=== PATIENT | female | born 1975 | race Caucasian/White ===

== ENCOUNTER → 2016-07-09 | Outpatient (REF) | payer BC | LOC: M SFHCADAM 15:30 | PROVIDERS: ATTEND Physician Assistant Medical | DX: E03.9 Hypothyroidism, unspecified (principal); G40.909 Epilepsy, unspecified, not intractable, without status epilepticus; E55.9 Vitamin D deficiency, unspecified; R53.83 Other fatigue; Z87.39 Personal history of other diseases of the musculoskeletal system and connective tissue ==

== ENCOUNTER → 2017-01-06 | Outpatient (CLI) | payer BC ==
--- NOTE | 2017-01-06 15:17 | REPMRS ---
Patient History The patient states she has not had a clinical breast exam in over a year. Family history of breast cancer in 2 maternal aunts at age 50 or over. Digital Woman Screen Mammo: January 06, 2017 - Exam #: [id number] Bilateral CC and MLO view(s) were taken. Technologist: Beverly Solorio, Technologist Prior study comparison: November 11, 2015, digital woman screen mammo performed at [facility] to [facility]. September 10, 2014, digital woman screen mammo performed at [facility] to [facility]. FINDINGS: There are scattered fibroglandular densities. There has been no change in the appearance of the mammogram from the prior studies. There is a mild amount of scattered fibroglandular density which is fairly symmetric. There is no interval development of dominant mass, architectural distortion, or clustered microcalcification suggestive of malignancy. ASSESSMENT: BI-RADS/ACR category 1 mammogram. Negative. Recommendation Routine screening mammogram in 1 year (for women over age 40). This mammogram was interpreted with the aid of an FDA-approved computer-aided dectection system. Electronically Signed By: Gage Payton MD 01/06/17 [id number]
== END ==
LOC: M WHC 14:25
PROVIDERS: ATTEND Physician Assistant Medical
DX: Z12.31 Encounter for screening mammogram for malignant neoplasm of breast (principal)

== ENCOUNTER → 2017-02-03 | Outpatient (REF) | payer BC ==
[2017-02-03 19:43] LABS: BASO # 0.1 10^3/uL (0.0-0.2); BASO % 0.8 % (0.0-1.0); EOS # 0.1 10^3/uL (0.0-0.50); EOS % 1.7 % (0.0-3.0); IMMATURE GRANULOCYTE % 0.7 % (0-0); LYMPH # 2.5 10^3/uL (1.5-4.5); LYMPH % 41.2 % (24.0-44.0); MEAN CORPUSCULAR HEMOGLOBIN 28.8 pg (27.0-33.0); MEAN CORPUSCULAR HGB CONC 31.9 g/dl (32.0-36.5); MEAN CORPUSCULAR VOLUME 90.2 fl (80.0-96.0); MONO # 0.5 10^3/uL (0.0-0.8); MONO % 8.5 % (0.0-5.0); NEUTROPHILS # 2.8 10^3/uL (1.8-7.7); NEUTROPHILS % 47.1 % (36.0-66.0); PLATELET COUNT, AUTOMATED 222 10^3/uL (150-450); RED CELL DISTRIBUTION WIDTH 13.1 % (11.5-14.5)
[2017-02-03 20:12] LABS: ALBUMIN 3.7 GM/DL (3.2-5.2); ALBUMIN/GLOBULIN RATIO 1.09 (1.00-1.93); ALKALINE PHOSPHATASE 58 U/L (45-117); ALT/SGPT 22 U/L (12-78); ANION GAP 6 MEQ/L (8-16); AST/SGOT 18 U/L (7-37); BILIRUBIN,TOTAL 0.2 MG/DL (0.2-1.0); BLOOD UREA NITROGEN 18 MG/DL (7-18); CALCIUM LEVEL 8.4 MG/DL (8.5-10.1); CARBON DIOXIDE LEVEL 30 MEQ/L (21-32); CHLORIDE LEVEL 108 MEQ/L (98-107); CHOLESTEROL LEVEL 235 MG/DL (<200); CREATININE FOR GFR 0.63 MG/DL (0.55-1.02); GLOMERULAR FILTRATION RATE > 60.0 (>58); GLUCOSE, FASTING 98 MG/DL (70-105); SODIUM LEVEL 144 MEQ/L (136-145); TOTAL PROTEIN 7.1 GM/DL (6.4-8.2); TRIGLYCERIDES LEVEL 228 MG/DL (<150)
== END ==
LOC: M SFHCADAM 15:20
DX: G40.909 Epilepsy, unspecified, not intractable, without status epilepticus (principal); E66.01 Morbid (severe) obesity due to excess calories; E55.9 Vitamin D deficiency, unspecified; E03.9 Hypothyroidism, unspecified
CPT/HCPCS: 84443

== ENCOUNTER → 2017-03-10 | Outpatient (REF) | payer BC ==
[2017-03-10 22:29] LABS: HEMATOCRIT 39.4 % (36.0-47.0); HEMOGLOBIN 12.5 g/dl (12.0-16.0); MEAN CORPUSCULAR HEMOGLOBIN 28.8 pg (27.0-33.0); MEAN CORPUSCULAR HGB CONC 31.7 g/dl (32.0-36.5); MEAN CORPUSCULAR VOLUME 90.8 fl (80.0-96.0); PLATELET COUNT, AUTOMATED 224 10^3/uL (150-450); RED BLOOD COUNT 4.34 10^6/uL (4.00-5.40); WHITE BLOOD COUNT 9.2 10^3/uL (4.0-10.0)
[2017-03-10 22:39] LABS: FERRITIN 75 NG/ML (8-252); IRON (FE) 46 UG/DL (50-170); TOTAL IRON BINDING CAPACITY 384 UG/DL (250-450)
[2017-03-11 10:54] LABS: FOLATE 10.7 NG/ML; VITAMIN B12 LEVEL 548 PG/ML
== END ==
LOC: M SFHCADAM 16:46
DX: D64.9 Anemia, unspecified (principal)
CPT/HCPCS: 82746

== ENCOUNTER → 2017-05-05 | Outpatient (REF) | payer BC ==
[2017-05-10 14:18] LABS: HPV HYBRID CAPTURE II Negative (Negative)
== END ==
LOC: M LAB REF 13:43
DX: Z12.4 Encounter for screening for malignant neoplasm of cervix (principal)
CPT/HCPCS: G0123

== ENCOUNTER → 2017-07-07 | Outpatient (REF) | payer BC | LOC: M LAB REF 12:34 | DX: R30.0 Dysuria (principal) | CPT/HCPCS: 87186 ==

== ENCOUNTER → 2017-08-28 | Outpatient (CLI) | payer BC | LOC: M ADAMS 15:37 | DX: M25.571 Pain in right ankle and joints of right foot (principal) | CPT/HCPCS: 73610 ==

== ENCOUNTER → 2017-11-26 | Outpatient (REF) | payer BC ==
[2017-11-26 18:11] LABS: FERRITIN 163 NG/ML (8-252); IRON (FE) 92 UG/DL (50-170); PERCENT SATURATION 24.9 % (13.2-45.0); TOTAL IRON BINDING CAPACITY 369 UG/DL (250-450)
[2017-11-28 10:27] LABS: FOLATE 6.6 NG/ML
== END ==
LOC: M SFHCADAM 10:23
DX: D64.9 Anemia, unspecified (principal)
CPT/HCPCS: 82746

== ENCOUNTER → 2017-12-06 | Outpatient (REF) | payer BC ==
[2017-12-06 12:57] LABS: VALPROIC ACID (DEPAKOTE) 79.5 UG/ML (50.0-100.0)
[2017-12-06 13:08] LABS: TOTAL 25(OH) VITAMIN D 49.4 NG/ML (30.0-100.0)
[2017-12-06 13:31] LABS: FREE T4 1.03 NG/DL (0.76-1.46)
== END ==
LOC: M SFHCADAM 08:58
DX: E03.9 Hypothyroidism, unspecified (principal); G40.909 Epilepsy, unspecified, not intractable, without status epilepticus
CPT/HCPCS: 84443

== ENCOUNTER → 2018-01-10 | Outpatient (CLI) | payer BC | LOC: M WHC 07:46 | DX: Z12.31 Encounter for screening mammogram for malignant neoplasm of breast (principal); Z78.0 Asymptomatic menopausal state | CPT/HCPCS: 77067 ==

== ENCOUNTER → 2018-06-05 | Outpatient (REF) | payer BC ==
[2018-06-05 12:47] LABS: BASO # 0.1 10^3/uL (0.0-0.2); BASO % 0.8 % (0.0-1.0); EOS # 0.1 10^3/uL (0.0-0.50); EOS % 1.1 % (0.0-3.0); HEMOGLOBIN 12.3 g/dl (12.0-15.5); LYMPH # 2.5 10^3/uL (1.5-4.5); LYMPH % 37.3 % (24.0-44.0); MEAN CORPUSCULAR HEMOGLOBIN 28.9 pg (27.0-33.0); MEAN CORPUSCULAR HGB CONC 31.5 g/dl (32.0-36.5); MEAN CORPUSCULAR VOLUME 91.8 fl (80.0-96.0); MONO # 0.7 10^3/uL (0.0-0.8); NEUTROPHILS # 3.3 10^3/uL (1.8-7.7); NEUTROPHILS % 49.9 % (36.0-66.0); PLATELET COUNT, AUTOMATED 225 10^3/uL (150-450); RED BLOOD COUNT 4.25 10^6/uL (4.00-5.40); WHITE BLOOD COUNT 6.6 10^3/uL (4.0-10.0)
[2018-06-05 13:13] LABS: ALBUMIN 3.8 GM/DL (3.2-5.2); ALT/SGPT 18 U/L (12-78); BILIRUBIN,TOTAL 0.4 MG/DL (0.2-1.0); BLOOD UREA NITROGEN 20 MG/DL (7-18); CALCIUM LEVEL 9.1 MG/DL (8.5-10.1); CARBON DIOXIDE LEVEL 29 MEQ/L (21-32); CHLORIDE LEVEL 106 MEQ/L (98-107); CHOLESTEROL LEVEL 264 MG/DL (<200); CHOLESTEROL RISK RATIO 6.947 (<5); CREATININE FOR GFR 0.71 MG/DL (0.55-1.30); FERRITIN 277 NG/ML (8-252); FREE T4 1.05 NG/DL (0.76-1.46); GLOMERULAR FILTRATION RATE > 60.0 (>58); GLUCOSE, FASTING 91 MG/DL (70-100); HDL CHOLESTEROL 38 MG/DL (>40); IRON (FE) 107 UG/DL (50-170); LDL CHOLESTEROL 189 MG/DL (<100); NON-HDL-C 226 MG/DL; PERCENT SATURATION 32.3 % (13.2-45.0); POTASSIUM SERUM 4.2 MEQ/L (3.5-5.1); SODIUM LEVEL 142 MEQ/L (136-145); TOTAL 25(OH) VITAMIN D 37.9 NG/ML (30.0-100.0); TOTAL IRON BINDING CAPACITY 331 UG/DL (250-450); TOTAL PROTEIN 7.1 GM/DL (6.4-8.2); TRIGLYCERIDES LEVEL 187 MG/DL (<150); VALPROIC ACID (DEPAKOTE) 86.8 UG/ML (50.0-100.0)
== END ==
LOC: M SFHCADAM 07:50
PROVIDERS: ATTEND Physician Assistant Medical
DX: G40.909 Epilepsy, unspecified, not intractable, without status epilepticus (principal); E03.9 Hypothyroidism, unspecified; D50.9 Iron deficiency anemia, unspecified; E55.9 Vitamin D deficiency, unspecified

== ENCOUNTER → 2018-11-30 | Outpatient (REF) | payer BC | LOC: M SFHCADAM 07:57 | PROVIDERS: ATTEND Physician Assistant Medical | DX: G40.909 Epilepsy, unspecified, not intractable, without status epilepticus (principal) ==

== ENCOUNTER → 2019-02-13 | Outpatient (CLI) | payer BC ==
--- NOTE | 2019-02-13 16:13 | REPMRS ---
Patient History The patient states she has not had a clinical breast exam in over a year. Patient is postmenopausal and had first child at age 32. Family history of breast cancer at age 50 or over in maternal aunt, breast cancer at age 50 or over in maternal aunt. Digital Woman Screen Mammo: February 13, 2019 - Exam #: [id number] Bilateral CC and MLO view(s) were taken. Technologist: Yulisa Radford, Technologist Prior study comparison: January 10, 2018, bilateral digital woman screen mammo performed at [facility]. January 06, 2017, digital woman screen mammo performed at [facility]. November 11, 2015, digital woman screen mammo performed at [facility]. FINDINGS: There are scattered fibroglandular densities. There has been no change in the appearance of the mammogram from the prior studies. There is a mild amount of scattered fibroglandular density which is fairly symmetric. There is no interval development of dominant mass, architectural distortion, or grouped microcalcification suggestive of malignancy. 3-D tomosynthesis shows no additional findings. Assessment: BI-RADS/ACR category 1 mammogram. Negative Mammogram. Recommendation Routine screening mammogram of both breasts in 1 year (for women over age 40). This patient's Lifetime Breast Cancer Risk is estimated at 15.0 %. This mammogram was interpreted with the aid of an FDA-approved computer-aided dectection system. Electronically Signed By: Gage Payton MD 02/13/19 1507
== END ==
LOC: M WHC 01:07
PROVIDERS: ATTEND Physician Assistant Medical
DX: Z12.31 Encounter for screening mammogram for malignant neoplasm of breast (principal); Z80.3 Family history of malignant neoplasm of breast

== ENCOUNTER → 2019-03-01 | Outpatient (REF) | payer BC | LOC: M SFHCWAGY 17:12 | PROVIDERS: ATTEND Specialist | DX: Z12.4 Encounter for screening for malignant neoplasm of cervix (principal) ==

== ENCOUNTER → 2019-07-04 | Outpatient (REF) | payer BC ==
[2019-07-04 12:47] LABS: BASO % 0.7 % (0.0-1.0); EOS # 0.1 10^3/uL (0.0-0.5); EOS % 0.8 % (0.0-3.0); HEMATOCRIT 37.4 % (36.0-47.0); HEMOGLOBIN 12.2 g/dl (12.0-15.5); LYMPH # 2.8 10^3/uL (1.5-5.0); MEAN CORPUSCULAR HEMOGLOBIN 29.8 pg (27.0-33.0); MEAN CORPUSCULAR HGB CONC 32.6 g/dl (32.0-36.5); MEAN CORPUSCULAR VOLUME 91.4 fl (80.0-96.0); MONO # 0.5 10^3/uL (0.0-0.8); NEUTROPHILS # 2.6 10^3/uL (1.5-8.5); PLATELET COUNT, AUTOMATED 208 10^3/uL (150-450); RED BLOOD COUNT 4.09 10^6/uL (4.00-5.40)
[2019-07-04 13:02] LABS: ALBUMIN 3.8 GM/DL (3.2-5.2); ALT/SGPT 25 U/L (12-78); BILIRUBIN,TOTAL 0.4 MG/DL (0.2-1.0); BLOOD UREA NITROGEN 15 MG/DL (7-18); CARBON DIOXIDE LEVEL 27 MEQ/L (21-32); CHLORIDE LEVEL 108 MEQ/L (98-107); CHOLESTEROL LEVEL 232 MG/DL (<200); CHOLESTEROL RISK RATIO 5.272 (<5); CREATININE FOR GFR 0.67 MG/DL (0.55-1.30); FERRITIN 240 NG/ML (8-252); GLOMERULAR FILTRATION RATE > 60.0 (>58); GLUCOSE, FASTING 89 MG/DL (70-100); HDL CHOLESTEROL 44 MG/DL (>40); IRON (FE) 77 UG/DL (50-170); LDL CHOLESTEROL 163 MG/DL (<100); NON-HDL-C 188 MG/DL; PERCENT SATURATION 24.3 % (13.2-45.0); POTASSIUM SERUM 4.5 MEQ/L (3.5-5.1); SODIUM LEVEL 139 MEQ/L (136-145); TOTAL 25(OH) VITAMIN D 44.5 NG/ML (30.0-100.0); TOTAL IRON BINDING CAPACITY 317 UG/DL (250-450); TOTAL PROTEIN 7.1 GM/DL (6.4-8.2); TRIGLYCERIDES LEVEL 126 MG/DL (<150); VALPROIC ACID (DEPAKOTE) 67.7 UG/ML (50.0-100.0)
== END ==
LOC: M SFHCADAM 09:24
PROVIDERS: ATTEND Physician Assistant Medical
DX: Z00.00 Encounter for general adult medical examination without abnormal findings (principal); E66.01 Morbid (severe) obesity due to excess calories; G40.909 Epilepsy, unspecified, not intractable, without status epilepticus; E55.9 Vitamin D deficiency, unspecified; E03.9 Hypothyroidism, unspecified; D50.9 Iron deficiency anemia, unspecified

== ENCOUNTER → 2020-02-14 | Outpatient (REF) | payer BC ==
[2020-02-15 13:20] LABS: BASO # 0.1 10^3/uL (0.0-0.2); EOS # 0.1 10^3/uL (0.0-0.5); EOS % 1.1 % (0.0-3.0); HEMATOCRIT 36.2 % (36.0-47.0); HEMOGLOBIN 11.5 g/dl (12.0-15.5); LYMPH # 2.4 10^3/uL (1.5-5.0); LYMPH % 38.7 % (24.0-44.0); MEAN CORPUSCULAR HEMOGLOBIN 28.8 pg (27.0-33.0); MEAN CORPUSCULAR HGB CONC 31.8 g/dl (32.0-36.5); MEAN CORPUSCULAR VOLUME 90.5 fl (80.0-96.0); MONO # 0.7 10^3/uL (0.0-0.8); MONO % 11.7 % (0.0-5.0); NEUTROPHILS % 47.2 % (36.0-66.0); PLATELET COUNT, AUTOMATED 194 10^3/uL (150-450); WHITE BLOOD COUNT 6.3 10^3/uL (4.0-10.0)
[2020-02-15 14:17] LABS: ALBUMIN 3.9 GM/DL (3.2-5.2); ALT/SGPT 24 U/L (12-78); BILIRUBIN,TOTAL 0.3 MG/DL (0.2-1.0); BLOOD UREA NITROGEN 21 MG/DL (7-18); CARBON DIOXIDE LEVEL 29 MEQ/L (21-32); CHLORIDE LEVEL 106 MEQ/L (98-107); CHOLESTEROL LEVEL 285 MG/DL (<200); CHOLESTEROL RISK RATIO 6.627 (<5); FREE T4 1.03 NG/DL (0.76-1.46); GLOMERULAR FILTRATION RATE > 60.0 (>58); GLUCOSE, FASTING 86 MG/DL (70-100); HDL CHOLESTEROL 43 MG/DL (>40); LDL CHOLESTEROL 198 MG/DL (<100); NON-HDL-C 242 MG/DL; POTASSIUM SERUM 5.5 MEQ/L (3.5-5.1); SODIUM LEVEL 138 MEQ/L (136-145); TOTAL PROTEIN 7.1 GM/DL (6.4-8.2); TRIGLYCERIDES LEVEL 222 MG/DL (<150); VALPROIC ACID (DEPAKOTE) 84.4 UG/ML (50.0-100.0)
== END ==
LOC: M SFHCADAM 15:06
PROVIDERS: ATTEND Physician Assistant Medical
DX: G40.909 Epilepsy, unspecified, not intractable, without status epilepticus (principal); E66.01 Morbid (severe) obesity due to excess calories; E55.9 Vitamin D deficiency, unspecified; E03.9 Hypothyroidism, unspecified; D50.9 Iron deficiency anemia, unspecified

== ENCOUNTER → 2020-03-13 | Outpatient (CLI) | payer BC ==
--- NOTE | 2020-03-13 09:04 | REPMRS ---
Patient History The patient states she has not had a clinical breast exam in over a year. Family history of breast cancer at age 50 or over in maternal aunt, breast cancer at age 50 or over in maternal aunt. Digital Woman Screen Mammo: March 13, 2020 - Exam #: [id number] Bilateral CC and MLO view(s) were taken. Technologist: Yulisa Radford, Technologist Prior study comparison: February 13, 2019, bilateral digital woman screen mammo performed at [facility]. January 10, 2018, bilateral digital woman screen mammo performed at [facility]. January 06, 2017, digital woman screen mammo performed at [facility]. FINDINGS: The breast tissue is almost entirely fat. The Volpara volumetric breast density category is: A. There has been no change in the appearance of the mammogram from the prior studies. There is no interval development of dominant mass, architectural distortion, or grouped microcalcification typical of malignancy. 3-D tomosynthesis shows no additional findings. Assessment: BI-RADS/ACR category 1 mammogram. Negative Mammogram. Recommendation Routine screening mammogram of both breasts in 1 year (for women over age 40). This [facility]'s [facility] Lifetime Breast Cancer RIsk is estimated at 14.8 %. This mammogram was interpreted with the aid of an FDA-approved computer-aided dectection system. Electronically Signed By: Gage Payton MD 03/13/20 0903
== END ==
LOC: M WHC 07:59
PROVIDERS: ATTEND Physician Assistant Medical
DX: Z12.31 Encounter for screening mammogram for malignant neoplasm of breast (principal)

== ENCOUNTER → 2020-07-09 | Outpatient (REF) | payer BC ==
[2020-07-09 11:21] LABS: BASO % 0.7 % (0.0-1.0); EOS % 0.7 % (0.0-3.0); HEMATOCRIT 39.8 % (36.0-47.0); HEMOGLOBIN 12.5 g/dl (12.0-15.5); LYMPH # 2.6 10^3/uL (1.5-5.0); LYMPH % 42.6 % (24.0-44.0); MEAN CORPUSCULAR HEMOGLOBIN 29.1 pg (27.0-33.0); MEAN CORPUSCULAR HGB CONC 31.4 g/dl (32.0-36.5); MEAN CORPUSCULAR VOLUME 92.8 fl (80.0-96.0); MONO # 0.6 10^3/uL (0.0-0.8); MONO % 9.5 % (2.0-8.0); NEUTROPHILS # 2.8 10^3/uL (1.5-8.5); NEUTROPHILS % 45.8 % (36.0-66.0); PLATELET COUNT, AUTOMATED 195 10^3/uL (150-450); RED BLOOD COUNT 4.29 10^6/uL (4.00-5.40)
[2020-07-09 11:58] LABS: BLOOD UREA NITROGEN 17 MG/DL (7-18); CALCIUM LEVEL 9.1 MG/DL (8.5-10.1); CARBON DIOXIDE LEVEL 30 MEQ/L (21-32); CHLORIDE LEVEL 107 MEQ/L (98-107); CREATININE FOR GFR 0.61 MG/DL (0.55-1.30); GLOMERULAR FILTRATION RATE > 60.0 (>58); GLUCOSE, FASTING 90 MG/DL (70-100); POTASSIUM SERUM 4.3 MEQ/L (3.5-5.1); SODIUM LEVEL 141 MEQ/L (136-145)
[2020-07-09 11:59] LABS: ALBUMIN 3.8 GM/DL (3.2-5.2); ALT/SGPT 21 U/L (12-78); BILIRUBIN,TOTAL 0.4 MG/DL (0.2-1.0); CHOLESTEROL LEVEL 252 MG/DL (<200); HDL CHOLESTEROL 45 MG/DL (>40); LDL CHOLESTEROL 180 MG/DL (<100); NON-HDL-C 207 MG/DL; TOTAL PROTEIN 7.3 GM/DL (6.4-8.2); TRIGLYCERIDES LEVEL 137 MG/DL (<150); VALPROIC ACID (DEPAKOTE) 95.4 UG/ML (50.0-100.0)
[2020-07-09 13:18] LABS: TOTAL 25(OH) VITAMIN D 53.2 NG/ML (30.0-100.0)
== END ==
LOC: M SFHCADAM 08:12
PROVIDERS: ATTEND Physician Assistant Medical
DX: E78.2 Mixed hyperlipidemia (principal); E66.01 Morbid (severe) obesity due to excess calories; G40.909 Epilepsy, unspecified, not intractable, without status epilepticus; E55.9 Vitamin D deficiency, unspecified; E03.9 Hypothyroidism, unspecified

== ENCOUNTER 2021-01-23 10:04 | Outpatient (CLI) | payer BC ==
[~2021-01-23] VITALS: Ht 162.6 cm; Wt 81.0 kg
[~2021-01-23 10:04] MED LIST: ALBUTEROL 90 MCG/ACT 8GM HFA INHALER INH PRN; ALBUTEROL SULFATE 2.5 MG/0.5 ML INH NEB SOLN INH PRN; EPINEPHrine INJ 1 MG/ML 1ML AMP IM PRN; NS 1,000 ML IV SCH; diphenhydrAMINE 50MG/ML VIAL (J1200) IV PRN; methylPREDNISolone 125MG 2ML VIAL IV PRN
[2021-01-23] MEDS ORDERED: CASIRIVIMAB/IMDEVIMAB 1,200 MG in NS 250 ML IV ONE (10:30)
[2021-01-23 10:40] VITALS: BP 128/85
[2021-01-23 11:10] VITALS: BP 123/70
[2021-01-23 11:40] VITALS: BP 124/75
[2021-01-23 12:40] VITALS: BP 141/65
== END 2021-01-23 12:40 | disposition home or self-care (01) ==
LOC: M OPCLI4PR 10:04
PROVIDERS: ATTEND Physician Assistant Medical
DX: U07.1 COVID-19 (principal)

== ENCOUNTER → 2021-03-11 | Outpatient (REF) | payer BC ==
[2021-03-11 16:53] LABS: HEMATOCRIT 36.5 % (36.0-47.0); MEAN CORPUSCULAR HEMOGLOBIN 30.5 pg (27.0-33.0); MEAN CORPUSCULAR HGB CONC 32.9 g/dl (32.0-36.5); MEAN CORPUSCULAR VOLUME 92.6 fl (80.0-96.0); PLATELET COUNT, AUTOMATED 221 10^3/uL (150-450); RED BLOOD COUNT 3.94 10^6/uL (4.00-5.40); WHITE BLOOD COUNT 7.1 10^3/uL (4.0-10.0)
[2021-03-11 17:28] LABS: ALBUMIN 3.8 GM/DL (3.2-5.2); ALT/SGPT 21 U/L (12-78); BILIRUBIN,TOTAL 0.3 MG/DL (0.2-1.0); BLOOD UREA NITROGEN 13 MG/DL (7-18); CALCIUM LEVEL 8.8 MG/DL (8.5-10.1); CARBON DIOXIDE LEVEL 29 MEQ/L (21-32); CHLORIDE LEVEL 106 MEQ/L (98-107); CHOLESTEROL LEVEL 225 MG/DL (<200); CHOLESTEROL RISK RATIO 5.769 (<5); CREATININE FOR GFR 0.62 MG/DL (0.55-1.30); GLOMERULAR FILTRATION RATE > 60.0 (>58); GLUCOSE, FASTING 86 MG/DL (70-100); HDL CHOLESTEROL 39 MG/DL (>40); LDL CHOLESTEROL 153 MG/DL (<100); NON-HDL-C 186 MG/DL; POTASSIUM SERUM 4.5 MEQ/L (3.5-5.1); SODIUM LEVEL 139 MEQ/L (136-145); TOTAL PROTEIN 7.1 GM/DL (6.4-8.2); TRIGLYCERIDES LEVEL 163 MG/DL (<150); VALPROIC ACID (DEPAKOTE) 88.7 UG/ML (50.0-100.0)
== END ==
LOC: M SFHCADAM 15:21
PROVIDERS: ATTEND Physician Assistant Medical
DX: E66.01 Morbid (severe) obesity due to excess calories (principal); E55.9 Vitamin D deficiency, unspecified; E03.9 Hypothyroidism, unspecified; E78.2 Mixed hyperlipidemia; G40.909 Epilepsy, unspecified, not intractable, without status epilepticus

== ENCOUNTER → 2021-04-14 | Outpatient (CLI) | payer BC | LOC: M WHC 09:22 | PROVIDERS: ATTEND Physician Assistant Medical | DX: Z12.31 Encounter for screening mammogram for malignant neoplasm of breast (principal) ==

== ENCOUNTER → 2021-09-04 | Outpatient (REF) | payer BC ==
[2021-09-04 11:35] LABS: THYROID STIMULATING HORMONE 2.89 uIU/ML (0.358-3.740); VALPROIC ACID (DEPAKOTE) 93.6 UG/ML (50.0-100.0)
== END ==
LOC: M SFHCADAM 08:48
PROVIDERS: ATTEND Physician Assistant Medical
DX: G40.909 Epilepsy, unspecified, not intractable, without status epilepticus (principal); E03.9 Hypothyroidism, unspecified

== ENCOUNTER → 2021-11-19 | Outpatient (REF) | payer BC | LOC: M SFHCWAGY 14:59 | PROVIDERS: ATTEND Specialist | DX: Z12.4 Encounter for screening for malignant neoplasm of cervix (principal) | CPT/HCPCS: 87624; G0123 ==

== ENCOUNTER → 2022-04-16 | Outpatient (CLI) | payer BC | LOC: M WHC 08:09 | PROVIDERS: ATTEND Physician Assistant Medical | DX: Z12.31 Encounter for screening mammogram for malignant neoplasm of breast (principal) ==

== ENCOUNTER → 2022-08-04 | Outpatient (REF) | payer BC ==
[2022-08-04 14:40] LABS: ALBUMIN 3.7 G/DL (3.2-5.2); ALKALINE PHOSPHATASE 42 U/L (46-116); ALT/SGPT 14 U/L (7.0-40); AST/SGOT 8 U/L (<34); BILIRUBIN,TOTAL 0.4 MG/DL (0.3-1.2); BLOOD UREA NITROGEN 15 MG/DL (9-23); CALCIUM LEVEL 9.7 MG/DL (8.5-10.1); CARBON DIOXIDE LEVEL 27 MMOL/L (20-31); CHLORIDE LEVEL 110 MMOL/L (98-107); CHOLESTEROL LEVEL 237 MG/DL (<200); CHOLESTEROL RISK RATIO 5.47 (<5); CREATININE FOR GFR 0.65 MG/DL (0.55-1.30); GLOMERULAR FILTRATION RATE > 60.0 (>58); GLUCOSE, FASTING 86 MG/DL (60-100); HDL CHOLESTEROL 43.3 MG/DL (>40); LDL CHOLESTEROL 169.5 MG/DL (<100); NON-HDL-C 193.7 MG/DL; POTASSIUM SERUM 4.6 MMOL/L (3.5-5.1); SODIUM LEVEL 141 MMOL/L (136-145); TOTAL 25(OH) VITAMIN D 54.4 NG/ML (20.0-100.0); TOTAL PROTEIN 6.5 G/DL (5.7-8.2); TRIGLYCERIDES LEVEL 121 MG/DL (<150)
== END ==
LOC: M SFHCADAM 08:13
PROVIDERS: ATTEND Physician Assistant Medical
DX: G40.909 Epilepsy, unspecified, not intractable, without status epilepticus (principal); E03.9 Hypothyroidism, unspecified

== ENCOUNTER → 2022-11-16 | Outpatient (REF) | payer BC ==
[2022-11-16 14:49] LABS: VALPROIC ACID (DEPAKOTE) 86.1 UG/ML (50.0-100.0)
[2022-11-16 14:51] LABS: HDL CHOLESTEROL 47.2 MG/DL (>40); LDL CHOLESTEROL 76.6 MG/DL (<100); NON-HDL-C 94.8 MG/DL
== END ==
LOC: M SFHCADAM 07:55
PROVIDERS: ATTEND Physician Assistant Medical
DX: E78.2 Mixed hyperlipidemia (principal); G40.909 Epilepsy, unspecified, not intractable, without status epilepticus

== ENCOUNTER → 2023-02-21 | Outpatient (REF) | payer BC ==
[2023-02-21 13:11] LABS: BASO # 0.1 10^3/uL (0.0-0.2); BASO % 0.9 % (0.0-1.0); EOS # 0.1 10^3/uL (0.0-0.5); HEMATOCRIT 39.8 % (36.0-47.0); HEMOGLOBIN 12.7 g/dl (12.0-15.5); LYMPH # 3.1 10^3/uL (1.5-5.0); LYMPH % 45.5 % (24.0-44.0); MEAN CORPUSCULAR HEMOGLOBIN 29.9 pg (27.0-33.0); MEAN CORPUSCULAR HGB CONC 31.9 g/dl (32.0-36.5); MEAN CORPUSCULAR VOLUME 93.6 fl (80.0-96.0); MONO # 0.5 10^3/uL (0.0-0.8); MONO % 7.5 % (2.0-8.0); NEUTROPHILS % 44.5 % (36.0-66.0); PLATELET COUNT, AUTOMATED 215 10^3/uL (150-450); RED BLOOD COUNT 4.25 10^6/uL (4.00-5.40); WHITE BLOOD COUNT 6.8 10^3/uL (4.0-10.0)
[2023-02-21 13:40] LABS: ALBUMIN 3.8 G/DL (3.2-5.2); ALKALINE PHOSPHATASE 45 U/L (46-116); ALT/SGPT 20 U/L (7.0-40); AST/SGOT 12 U/L (<34); BILIRUBIN,TOTAL 0.4 MG/DL (0.3-1.2); BLOOD UREA NITROGEN 15 MG/DL (9-23); CALCIUM LEVEL 9.3 MG/DL (8.5-10.1); CARBON DIOXIDE LEVEL 30 MMOL/L (20-31); CHLORIDE LEVEL 107 MMOL/L (98-107); CHOLESTEROL LEVEL 146 MG/DL (<200); CHOLESTEROL RISK RATIO 2.87 (<5); CREATININE FOR GFR 0.63 MG/DL (0.55-1.30); GLOMERULAR FILTRATION RATE > 60.0 (>58); GLUCOSE, FASTING 88 MG/DL (60-100); HDL CHOLESTEROL 50.7 MG/DL (>40); LDL CHOLESTEROL 79.3 MG/DL (<100); NON-HDL-C 95.3 MG/DL; POTASSIUM SERUM 4.5 MMOL/L (3.5-5.1); SODIUM LEVEL 141 MMOL/L (136-145); TOTAL PROTEIN 6.9 G/DL (5.7-8.2); TRIGLYCERIDES LEVEL 80 MG/DL (<150)
[2023-02-21 13:42] LABS: TOTAL 25(OH) VITAMIN D 81.5 NG/ML (20.0-100.0)
== END ==
LOC: M SFHCADAM 10:22
PROVIDERS: ATTEND Physician Assistant Medical
DX: E03.9 Hypothyroidism, unspecified (principal); E78.2 Mixed hyperlipidemia; E55.9 Vitamin D deficiency, unspecified; F32.1 Major depressive disorder, single episode, moderate

== ENCOUNTER → 2023-04-18 | Outpatient (CLI) | payer BC | LOC: M WHC 08:38 | PROVIDERS: ATTEND Physician Assistant Medical | DX: Z12.31 Encounter for screening mammogram for malignant neoplasm of breast (principal); R92.323 Mammographic fibroglandular density, bilateral breasts ==

== ENCOUNTER → 2023-05-19 | Outpatient (CLI) | payer BC | LOC: M ADAMS 15:15 | PROVIDERS: ATTEND Physician Assistant Medical | DX: M25.551 Pain in right hip (principal); M16.11 Unilateral primary osteoarthritis, right hip; M51.36 Other intervertebral disc degeneration, lumbar region; M51.37 Other intervertebral disc degeneration, lumbosacral region ==

== ENCOUNTER 2023-07-15 21:25 | Emergency (ER) | payer OTHER, BC ==
[~2023-07-15] VITALS: Ht 162.6 cm; Wt 76.8 kg
[2023-07-15 23:20] VITALS: BP 129/67; TEMP 98; O2SAT 99
== END 2023-07-15 23:23 | disposition home or self-care (01) ==
LOC: M ED 21:25
DX: S50.12XA Contusion of left forearm, initial encounter (principal); W19.XXXA Unspecified fall, initial encounter; Y92.9 Unspecified place or not applicable; Y93.9 Activity, unspecified; Y99.9 Unspecified external cause status; E78.5 Hyperlipidemia, unspecified; E07.9 Disorder of thyroid, unspecified; J45.909 Unspecified asthma, uncomplicated; R56.9 Unspecified convulsions; Z88.8 Allergy status to other drugs, medicaments and biological substances

== ENCOUNTER → 2023-08-23 | Outpatient (REF) | payer BC ==
[2023-08-23 18:26] LABS: VALPROIC ACID (DEPAKOTE) 96.3 UG/ML (50.0-100.0)
[2023-08-23 18:34] LABS: THYROID STIMULATING HORMONE 2.299 uIU/ML (0.55-4.78)
== END ==
LOC: M SFHCADAM 15:11
PROVIDERS: ATTEND Physician Assistant Medical
DX: G40.909 Epilepsy, unspecified, not intractable, without status epilepticus (principal); E03.9 Hypothyroidism, unspecified

== ENCOUNTER → 2024-02-03 | Outpatient (REF) | payer BC ==
[2024-02-03 14:11] LABS: VALPROIC ACID (DEPAKOTE) 76.4 UG/ML (50.0-100.0)
[2024-02-03 14:12] LABS: ALBUMIN 3.7 G/DL (3.2-5.2); ALKALINE PHOSPHATASE 50 U/L (35-104); ALT/SGPT 19 U/L (7.0-40); AST/SGOT 13 U/L (<34); BILIRUBIN,TOTAL 0.5 MG/DL (0.3-1.2); BLOOD UREA NITROGEN 16 MG/DL (9-23); CALCIUM LEVEL 9.4 MG/DL (8.5-10.1); CARBON DIOXIDE LEVEL 30 MMOL/L (20-31); CHLORIDE LEVEL 108 MMOL/L (98-107); CHOLESTEROL LEVEL 172 MG/DL (<200); CHOLESTEROL RISK RATIO 3.56 (<5); CREATININE FOR GFR 0.65 MG/DL (0.55-1.30); GLOMERULAR FILTRATION RATE > 60.0 (>58); GLUCOSE, FASTING 93 MG/DL (60-100); HDL CHOLESTEROL 48.2 MG/DL (>40); LDL CHOLESTEROL 97.6 MG/DL (<100); NON-HDL-C 123.8 MG/DL; POTASSIUM SERUM 4.5 MMOL/L (3.5-5.1); SODIUM LEVEL 143 MMOL/L (136-145); THYROID STIMULATING HORMONE 2.767 uIU/ML (0.55-4.78); TOTAL PROTEIN 6.8 G/DL (5.7-8.2); TRIGLYCERIDES LEVEL 131 MG/DL (<150)
[2024-02-03 14:13] LABS: TOTAL 25(OH) VITAMIN D 70.6 NG/ML (20.0-100.0)
[2024-02-03 14:14] LABS: FREE T4 1.09 NG/DL (0.89-1.76)
[2024-02-03 14:19] LABS: BASO % 0.6 % (0.0-1.0); EOS # 0.1 10^3/uL (0.0-0.5); EOS % 1.2 % (0.0-3.0); HEMATOCRIT 39.5 % (36.0-47.0); HEMOGLOBIN 12.4 g/dl (12.0-15.5); LYMPH # 2.8 10^3/uL (1.5-5.0); LYMPH % 41.5 % (24.0-44.0); MEAN CORPUSCULAR HEMOGLOBIN 29.6 pg (27.0-33.0); MEAN CORPUSCULAR HGB CONC 31.4 g/dl (32.0-36.5); MEAN CORPUSCULAR VOLUME 94.3 fl (80.0-96.0); MONO # 0.6 10^3/uL (0.0-0.8); MONO % 8.8 % (2.0-8.0); NEUTROPHILS # 3.1 10^3/uL (1.5-8.5); NEUTROPHILS % 47.3 % (36.0-66.0); PLATELET COUNT, AUTOMATED 219 10^3/uL (150-450); RED BLOOD COUNT 4.19 10^6/uL (4.00-5.40); WHITE BLOOD COUNT 6.6 10^3/uL (4.0-10.0)
== END ==
LOC: M SFHCADAM 09:38
PROVIDERS: ATTEND Physician Assistant Medical
DX: E03.9 Hypothyroidism, unspecified (principal); E78.2 Mixed hyperlipidemia; E66.01 Morbid (severe) obesity due to excess calories; E55.9 Vitamin D deficiency, unspecified; G40.909 Epilepsy, unspecified, not intractable, without status epilepticus

== ENCOUNTER → 2024-04-19 | Outpatient (CLI) | payer BC | LOC: M WHC 15:16 | PROVIDERS: ATTEND Physician Assistant Medical | DX: Z12.31 Encounter for screening mammogram for malignant neoplasm of breast (principal); R92.313 Mammographic fatty tissue density, bilateral breasts ==

== ENCOUNTER → 2024-09-05 | Outpatient (REF) | payer BC ==
[2024-09-05 18:55] LABS: FREE T4 1.04 NG/DL (0.89-1.76)
== END ==
LOC: M SFHCADAM 11:31
PROVIDERS: ATTEND Physician Assistant Medical
DX: E03.9 Hypothyroidism, unspecified (principal)

== ENCOUNTER → 2025-01-02 | Outpatient (REF) | payer BC ==
[2025-01-08 14:01] LABS: HPV APTIMA Not Detected (Not Detected)
== END ==
LOC: M SFHCWAGY 12:45
PROVIDERS: ATTEND Nurse Practitioner Family
DX: Z01.419 Encounter for gynecological examination (general) (routine) without abnormal findings (principal); Z77.9 Other contact with and (suspected) exposures hazardous to health
CPT/HCPCS: 87624; G0123